=== PATIENT | male | born 2000 | race Caucasian/White ===

== ENCOUNTER → 2024-11-17 07:28 | Outpatient (REF) | payer BC, SELFPAY ==
[2024-11-17 08:29] LABS: % Basophils 0.6 % (0-2); % Eosinophils 6.8 % (0-6); % Immature Granulocytes 0.2 % (0-0.5); % Lymphocytes 33.3 % (20.5-51.1); % Monocytes 7.8 % (1.7-9.3); % Neutrophils 51.3 % (42.2-75.2); Absolute Eosinophils 0.3 10^3/uL (0-0.7); Absolute Lymphocytes 1.6 10^3/uL (1.2-3.4); Absolute Monocytes 0.4 10^3/uL (0.1-0.6); Absolute Neutrophils 2.5 10^3/uL (1.4-6.5); Hematocrit 41.8 % (39.0-52.0); Hemoglobin 14.7 g/dL (13.0-18.0); Mean Corp Hgb Conc. 35.2 g/dL (33.0-37.0); Mean Corpuscular Hgb 29.9 pg (27.0-31.0); Mean Corpuscular Volume 85.1 fL (80.0-94.0); Mean Platelet Volume 9.4 fL (7.4-10.4); Nucleated Red Blood Cells % 0 % (-); Platelet Count 247 10^3/uL (130-400); Red Blood Cell Count 4.91 10^6/uL (4.70-6.10); Red Cell Dist. Width 11.8 % (11.5-14.5); White Blood Cell Count 4.9 10^3/uL (4.8-10.8)
[2024-11-17 09:21] LABS: ALT (SGPT) 24 U/L (0-50); AST (SGOT) 22 U/L (17-59); Albumin 5.1 g/dl (3.5-5.0); Alkaline Phosphatase 70 U/L (38-126); Blood Urea Nitrogen 14 mg/dl (9-20); Calcium 9.8 mg/dl (8.4-10.2); Carbon Dioxide 29 mmol/L (22-30); Chloride 102 mmol/L (98-107); Glucose 95 mg/dl (70-99); Potassium 4.3 mmol/L (3.5-5.1); Sodium 141 mmol/L (135-145); Total Bilirubin 0.7 mg/dl (0.2-1.3); Total Protein 7.4 g/dl (6.3-8.2); eGFR > 60.00
== END ==
LOC: REG 07:28
PROVIDERS: ATTENDING PHYSICIAN Internal Medicine Cardiovascular Disease; FAMILY PHYSICIAN Internal Medicine
DX: R00.2 Palpitations (principal); I45.6 Pre-excitation syndrome
CPT/HCPCS: 36415; 80053; 85025

== ENCOUNTER 2024-11-20 06:03 | Day surgery (SDC) | payer BC, SELFPAY ==
[2024-11-20] VITALS (20 sets, daily range): BP systolic 95–122; BP diastolic 61–91
--- NOTE | 2024-11-20 10:50 | ITS.CL.ABL ---
Employee Benefits Director - Ablation
Ablation
Procedure Report:
Supra-Ventricular Tachycardia � AVRT Ablation:
Mr. Lakhani is a very pleasant�24 yr old young man with medical history significant for WPW and palpitations and was diagnosed with supra-ventricular tachycardia (SVT). He presented today to the EP lab for electrophysiology (EP) study of the heart
and possible ablation of the SVT.
�
Date of the Procedure:
11/20/2024
Indications: Supra-Ventricular Tachycardia (SVT)
�
Pre-Operative Diagnosis: Supra-Ventricular Tachycardia (SVT)
�
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
�
Procedure Performed: EP study and SVT ablation
�
Performing Physician:
Ana Nguyễn MD
��
Anesthesia:
See anesthesia records
�
Detailed Description of the Procedure:
Written informed consent was obtained from the patient after a full explanation of the risks and benefits of the procedure including the risks of sedation and anesthesia. The patient was brought to the electrophysiology laboratory in stable
condition in fasting state. Continuous electrocardiographic and hemodynamic monitoring was initiated.
The initial rhythm was normal sinus.
The procedure site was meticulously prepared with surgical scrub and allowed to dry with no pooling. Sterile draping was applied to cover the procedure site. The image intensifier was draped with sterile bag and positioned over the patient.
Sheath and Catheter Placement:
After infusion of local anesthetic, vascular access was obtained under ultrasound guidance and sheaths were placed over guide wire as detailed below.
�
Sheaths:
- � � � 9 Fr sheath in right femoral vein
- � � � 7 Fr sheath in right femoral vein
- � � � 8 Fr that was later upgraded to 11.5 Fr Agilis sheath in right femoral vein
Catheters:
- � � � 6Fr � Quad - cath at HIS
- � � � Deca polar Bard catheter - at locations of CS
- � � � 3.5 mm force sensing irrigated Thermocool ST SF Bidirectional
�
Following the sheaths placement, patient was given Heparin bolus and EP study was done.
Baseline intervals (milliseconds):
PP interval (baseline cycle length): 780
P wave duration:108
MA interval:108
QRS duration: 88
QT interval: 368
�
P onset to HRA: 0
P onset to AVJ: 40
AH interval: 44
His duration: 12
HV interval: 0
Q onset to RVa: 0
��
Sinus Node Function:
HRA pacing showed adequate threshold. The sinus node functions are within acceptable normal range.
�
Atrioventricular Leatha Function:
Atrial stimulation with incremental pacing intervals was performed from the high right atrium (HRA) and right ventricular apex (RVa) and antegrade and retrograde atrioventricular (AV) block cycle lengths were determined. The antegrade AV Wenckebach
was noted at 270 msec.
�
Programmed atrial stimulation was performed with drive train of 600 msec followed by a single atrial extra-stimulus and the AV leatha and the atrial ERPs were determined
AVNERP was 290msec
AERP was 250msec.
There was pre-excitation noted throughout.
Ventricular stimulation showed concentric, retrograde conduction through the posterolateral pathway. The retrograde CS activation was different from the sinus activation.
A septal pathway was suspected.
Ventricular Function:
VA Enckebach was 290msec.
Single ventricular extrastimuli were delivered following drive train of 600 msec and the ventricular ERP was determined at below 700/200 msec. The ventricular electrical functions are within acceptable range.
Para-Hisian pacing:
The anteroseptal pathway prompted the study and Para-Hisian pacing was attempted. The high voltage captured the His with narrow QRS and VA time was 68 msec. The low voltage captured the RV with wide QRS and the VA time was also 88 msec. This is a
non-leatha response and an accessory pathway was identified. ��
There was clear pre-excitation noted and the AP was demonstrable. The decision was made to map and ablate the pathway. The RV was paced and the earliest A was mapped using Carto.
�
The RA and the CS was mapped that showed that the AP was closer to mouth of the CS at the septal side consistent with postero-septal accessory pathway.�The CS and LA was out of the AP location.
The RV and CS was paced and tachycardia was easily inducible at 340 msec pacing from the proximal CS.
Electroanatomic 3D Mapping (EAM) and Ablation:
The HRA was removed and was upgraded to Agilis as noted above for ablation catheter. EAM and radiofrequency ablation was performed using an open irrigation, force-sensing 3.5mm radiofrequency ablation catheter (Loginza STSF). 3D mapping was
performed with Carto3 software. Cardiac anatomy as established. His cloud was established.
3D contact electroanatomical map was created using CARTO 3D mapping.�The AP was noted to be located at the postero septal location.�The RA was mapped with RV pacing. Once orthodromic tachycardia was induced. EP maneuvers were performed again
confirming the AVRT with RV entrainment and termination and termination with HIS synchronous PVC. The tachycardia was easily inducible.
Ablation: SVT ablation
The EAM of the RA septum and the CS showed posteroseptal location of the pathway. The HIS signal was close to the pathway insertion as well. The atrial insertion was noted. Near the atrial insertion, the pathway potentials were noted. Radiofrequency
ablation was performed using ThermocoSuperDimension STSF with non-irrigation, force-sensing 3.5mm bidirectional radiofrequency ablation catheter through the Agilis sheath. The ablation catheter was placed at the point of interest with the distinct pathway
potential present and the ablation lesions was applied at 25 andres for 60 degrees. Multitude of slow junctional beats were noted without any dropped beats.
The pre-excitation disappeared with the first ablation and were noted again with observation. Additional ablations were placed and no more pre-excitation noted.
Post Ablation EP study:
There was no sign of AV block present. The EP study was done that showed normal conduction with decremental conduction.
There was still normal leatha retrograde VA conduction present.
The post ablation EP study showed normal AV conduction. There was normal retrograde VA conduction present post ablation.
Para Hisian Pacing was done that showed leatha response with VA time of 130 msec with HIS capture and dissociated with RV capture.
The MA was 164msec; QRS was 88msec; AH was 55msec with HV of 45msec.
Post ablation AV leatha ERP was 600/310 msec with atrial ERP at 600/240 msec. There was an echo beat noted at 600/270
There was no sign of AV block noted.
Procedure End
Following the completion of the EP study, catheters were removed. The sheaths were removed and hemostasis achieved with placement of �figure of 8� sutures and manual compression.
Recommendations:
��������� �Figure of 8� suture to be removed in 4 hours with another 1 hour of bedrest before slow ambulation.
��������� Likely discharge home today.
�
Estimated Blood loss:
<5 cc
�
Specimens Removed:
None.
�
Implants / Devices:
None
�
Urine output:
None
�
Packs / Drains/ Tubes:
None
�
Instrument / Sponge Count Correct:
Yes
�
Complications of the Procedure:
None
�
Condition of Patient at Time of Transfer:
Hemodynamically stable with no neurological or vascular compromise.
�
Summary:
Electrophysiology study with atrioventricular re-entry tachycardia (AVRT) associated with posteroseptal pathway and accessory pathway ablation.
(EP study, SVT ablation, Trans-septal, 3D mapping)
--- NOTE | 2024-11-20 14:10 | PTCARENOTE ---
PT HR HIGH 90'S LOW 100'S. [employer] AWARE AND NO NEW ORDERS. OK FOR D/C PER CAROLEE CABALLERO
== END 2024-11-20 14:27 | disposition home or self-care (01) ==
LOC: CATH 06:03
PROVIDERS: ATTENDING PHYSICIAN Internal Medicine Cardiovascular Disease; FAMILY PHYSICIAN Internal Medicine
DX: I45.6 Pre-excitation syndrome (principal); I47.19 Other supraventricular tachycardia; I47.20 Ventricular tachycardia, unspecified
CPT/HCPCS: C1894; C1732; C1730; C1892; C1766; 93005; 93653